=== PATIENT | female | born 1995 | race Caucasian/White ===

== ENCOUNTER 2021-11-17 09:46 | Emergency (ER) | payer MEDICAID, SELFPAY ==
[2021-11-17 10:04] VITALS: BP 112/66; BP 97/79; PULSE 80; PULSE 91; RESP 16; TEMP 37.1; O2SAT 99; BMI 32.9
--- NOTE | 2021-11-17 10:09 | ED.SKABFB ---
HPI - Skin/Abscess/Foreign Bdy General Chief complaint: Skin/Abscess/Foreign Body Stated complaint: DRAINAGE FROM CYST REMOVAL SITE ON COCCYX WEEK AGO Time Seen by Provider: 11/17/21 09:55 Source: patient and RN notes reviewed Mode of arrival: ambulatory Limitations: no limitations History of Present Illness HPI narrative: This is a 26-year-old female who presents today with complaints of foul-smelling drainage and pain from pionidal cyst removal site since yesterday. Patient states that on November 10, she had a pilonidal cyst removed by general surgery [facility]. She states that there were no complications during the surgery however reports with the last couple days she has had subjective fevers and chills and has noticed increased drainage from the incision site. She states that she has been performing dressing changes and has noticed yellow and green drainage as well as a foul smell. She did call her surgeon's office and they stated that she has a follow-up appointment on November 23 and that she only needs to return if her fever is above 99.5. She has been taking ibuprofen for her pain and is not currently on antibiotics. She states that she was on antibiotics, unsure of which for 7-10 prior to the surgery, but was not discharged on antibiotics. No other complaints or concerns at this time. MD complaint: abscess/boil Onset (ago): week(s) Tetanus up to date: yes Severity: moderate Severity scale (1-10): 8 Quality: aching Pain Consistency: constant Relieving factors: none Exacerbating factors: none Context: none Associated symptoms: fever and chills Treatments prior to arrival: NSAID Related Data Previous Rx's Medication Instructions Recorded acetaminophen 500 mg tablet 1,000 mg PO QID PRN fever or pain 11/17/21 (Tylenol Extra Strength) #14 tabs cephalexin 500 mg capsule 500 mg PO Q6H 10 days #40 caps 11/17/21 docusate sodium 100 mg capsule 100 mg PO BID PRN Constipation #14 11/17/21 (Colace) caps doxycycline monohydrate 100 mg 100 mg PO BID 10 days #20 tabs 11/17/21 tablet ibuprofen 800 mg tablet 800 mg PO Q8H PRN pain #30 tabs 11/17/21 oxycodone 5 mg tablet 5 mg PO Q6H PRN pain #30 tabs 11/17/21 polyethylene glycol 3350 17 17 g PO DAILY Constipation #238 11/17/21 gram/dose oral powder (Miralax) grams Allergies Allergy/AdvReac Type Severity Reaction Status Date / Time ciprofloxacin [From CIPRO] Allergy Unknown NEUROPATHY Unverified 01/16/20 17:33 Review of Systems Review of Systems: Constitutional : + Subjective Fevers, + Chills, + Night Sweats, No Fatigue, No Malaise ENT/Mouth : No Ear Pain, No Nasal Congestion, No Sinus Pain, No sore throat, No Rhinorrhea Eyes: No Eye Pain, No Swelling, No Redness, No Foreign Body, No Discharge, No Vision Changes Cardiovascular : No Chest Pain, No SOB, No Dyspnea on Exertion, No Orthopnea, No Palpitations Respiratory : No Cough, No Sputum, No Wheezing, No Dyspnea Gastrointestinal : No Nausea, No Vomiting, No Diarrhea, No Constipation, No abdominal Pain, No Hematochezia, No Melena Genitourinary : No Dysuria, No Urinary Frequency, No Urinary Incontinence, No Urgency, No Flank Pain Musculoskeletal : No joint pain, No Myalgias Skin : + pionidal cyst excised with sutures, No lacerations Neuro : No Focal weakness, no general weakness, No Numbness, No Paresthesias, No Loss of Consciousness, No Dizziness, No Headache Yes all other systems are reviewed and are negative [facility]LY [facility] Past Medical History Attestation statement: The following information was validated with the patient. Source: old records reviewed and nursing notes reviewed Social History Social History Advance Directives: No Advance Directives Information Provided: Yes Physical Exam Vital Signs: Vital Signs: Last Vital Signs Temp 98.8 F 11/17/21 10:04 Pulse 91 11/17/21 10:04 Resp 16 11/17/21 10:56 BP 97/79 11/17/21 10:04 Pulse Ox 99 11/17/21 10:04 O2 Del Method 11/17/21 10:04 BMI result Body Mass Index 32.9 Vital signs have been reviewed as normal and appeared to be correct. Blood pressure normal. Heart rate normal. Respiration rate normal. Temperature normal. Oxygen saturation normal. Appearance: Alert. Oriented X3. Tearful Head: Normal external exam. Normocephalic. Atraumatic. Eyes: PERRLA. EOMI. Conjunctiva and sclera normal. Eyelids normal. ENT: Pharynx normal. Uvula midline. Moist mucous membranes. No lesions/ulcerations or masses noted on the tongue. Normal voice. No trismus noted. No drooling noted. No muffled voice noted. Neck: Normal inspection. Neck supple. FROM. No adenopathy. Thyroid Normal. No meningeal signs. CVS: Normal heart rate and rhythm. Heart sound normal. Pulses normal throughout. No murmurs/rales/gallops. Respiratory: No respiratory distress. Painless inspiration. Breath sounds normal. No wheezes/rales/rhonchi noted. Chest nontender. No crepitus is noted. No signs of trauma noted. No accessory muscle usage noted or decreased air movement noted. No signs of trauma. Abdomen: Soft and nontender. Bowel sounds normal in all 4 quadrants. No distention noted. Back: No CVA tenderness. Full range of motion noted. Nontender. No signs of trauma. Skin: Gluteal cleft with incision, sutures placed, with surrounding erythema and warmth, significant purulent and serosanginous drainage excreted from wound. Extremities: No lower extremity edema. No calf tenderness is noted. Extremities exhibit normal range of motion and nontender. Neuro: Oriented X 3. No motor deficit. No sensory deficit. Reflexes normal. Normal steady gait. No focal neuro deficits noted. CN's II-XII intact bilaterally? Vascular: + radial pulses/+ 2 distal pedal pulses/+2 dorsalis pedis b/l. Normal cap refill. No cyanosis noted to upper extremity nails and lower extremity toes nails. Course Course Course Narrative: 1000 This is a 26-year-old female who presents today with complaints of foul-smelling drainage from pionidal cyst removal site x 2 days. Pilonidal cyst incisional site draining significant amount of purulence and serosanguineous fluid. Will obtain records from [facility]. Will treat prophylactically with Zosyn and morphine IV. Patient seen by Dr. Vivian Mathias. Dr. Long consulted who will come and evaluate patient. Plan: Labs ordered. Reevaluation(s) Reevaluation #1: - labs reviewed patient [place] [address] may be reactive due to pain and recent surgery. Otherwise all other labs are within normal limits. Lactic acid 0.7. UA within normal limits no evidence of UTI. Serum quant negative for . - Dr. Long came and evaluated the patient he reported that this is a normal complications that can happen that the stitches can sometimes dehisced or open and that the draining is expected. He reported that she can be sent home with antibiotics doxycycline and additional pain meds due to she ran out 3 days ago and instructions to follow-up with her general surgeon as scheduled on Monday and to return sooner if any new or worsening symptoms. Patient with significant other at bedside understand agree this plan Time: 12:40 MDM - Skin/Abscess/Foreign Bdy Medical Records Attestation: I reviewed the patient's medical records. Lab Data Attestation: I reviewed the patient's lab results. Result diagrams: 11/17/21 11:35 11/17/21 11:35 Labs: Lab Results 11/17/21 11/17/21 11/17/21 Range/Units 11:35 11:35 11:35 WBC 14.8 H (4.8-10.8) X10*3/uL RBC 3.87 L (4.20-5.50) X10*6/uL Hgb 12.1 (12.0-16.0) g/dl Hct 35.9 L (37.0-47.0) % MCV 92.8 (80.0-98.0) fL MCH 31.3 (27.0-33.0) pg MCHC 33.7 (31.0-35.0) g/dl RDW 12.7 (11.0-16.0) % Plt Count 214 (160-400) X10*3/uL MPV 10.6 (9.4-12.3) fL Immature Gran % (Auto) 0.5 H (0.0-0.4) % Neut % (Auto) 82.1 H (45-73) % Lymph % (Auto) 7.3 L (20-40) % [place] % (Auto) 9.3 (2-11) % Eos % (Auto) 0.5 (0-4) % Baso % (Auto) 0.3 (0-2) % Lymph # (Auto) 1.1 L (1.2-4.9) X10*3/uL [place] # (Auto) 1.4 H (0.1-1.2) X10*3/uL Eos # (Auto) 0.1 (0.0-0.4) X10*3/uL Baso # (Auto) 0.0 (0.0-0.2) X10*3/uL Abs Immat Gran (auto) 0.07 H (0.00-0.03) X10*3/uL Absolute Neuts (auto) 12.1 H (2.0-8.3) x10*3/uL Absolute Nucleated RBC 0.000 (0.0-0.012) X10*3/uL Nucleated RBC % (auto) 0.0 (0.0-0.2) /100WBC PT 11.3 (10.0-13.1) SEC INR 1.0 (0.9-1.1) Sodium 141 (135-145) mmol/L Potassium 4.2 (3.3-5.1) mmol/L Chloride 111 H (96-108) mmol/L Carbon Dioxide 23 (22-29) mmol/L Anion Gap 11 L (12-20) BUN 9 (9-16) mg/dL Creatinine 0.74 (0.5-1.4) mg/dL Estim Creat Clear Calc 124.1 Estimated GFR > 60 Random Glucose 87 (60-115) mg/dL Lactic Acid (0.5-2.0) mmol/L Calcium 8.7 (8.4-10.2) mg/dL Magnesium 2.0 (1.6-2.6) mg/dL Total Bilirubin 0.7 (0.0-1.0) mg/dL AST 19 (5-31) U/L ALT 22 (0-31) U/L Alkaline Phosphatase 73 (39-117) U/L Total Protein 6.5 (6.5-8.0) g/dL Albumin 4.0 (3.5-5.0) g/dL Beta HCG, Quant mIU/mL Urine Color Urine Appearance Urine pH (5.0-8.0) Ur Specific [place] (1.005-1.025) Urine Protein (NEG-TRACE) MG/DL Urine Glucose (UA) (NEG) MG/DL Urine Ketones (NEG) MG/DL Urine Blood (NEG) Urine Nitrite (NEG) Ur Leukocyte Esterase (NEG) Urine RBC (0) /HPF Urine WBC (0-4) /HPF Ur Squamous Epith Cells /LPF Urine Bacteria /LPF 11/17/21 11/17/21 11/17/21 Range/Units 11:35 11:35 12:17 WBC (4.8-10.8) X10*3/uL RBC (4.20-5.50) X10*6/uL Hgb (12.0-16.0) g/dl Hct (37.0-47.0) % MCV (80.0-98.0) fL MCH (27.0-33.0) pg MCHC (31.0-35.0) g/dl RDW (11.0-16.0) % Plt Count (160-400) X10*3/uL MPV (9.4-12.3) fL Immature Gran % (Auto) (0.0-0.4) % Neut % (Auto) (45-73) % Lymph % (Auto) (20-40) % [place] % (Auto) (2-11) % Eos % (Auto) (0-4) % Baso % (Auto) (0-2) % Lymph # (Auto) (1.2-4.9) X10*3/uL [place] # (Auto) (0.1-1.2) X10*3/uL Eos # (Auto) (0.0-0.4) X10*3/uL Baso # (Auto) (0.0-0.2) X10*3/uL Abs Immat Gran (auto) (0.00-0.03) X10*3/uL Absolute Neuts (auto) (2.0-8.3) x10*3/uL Absolute Nucleated RBC (0.0-0.012) X10*3/uL Nucleated RBC % (auto) (0.0-0.2) /100WBC PT (10.0-13.1) SEC INR (0.9-1.1) Sodium (135-145) mmol/L Potassium (3.3-5.1) mmol/L Chloride (96-108) mmol/L Carbon Dioxide (22-29) mmol/L Anion Gap (12-20) BUN (9-16) mg/dL Creatinine (0.5-1.4) mg/dL Estim Creat Clear Calc Estimated GFR Random Glucose (60-115) mg/dL Lactic Acid 0.7 (0.5-2.0) mmol/L Calcium (8.4-10.2) mg/dL Magnesium (1.6-2.6) mg/dL Total Bilirubin (0.0-1.0) mg/dL AST (5-31) U/L ALT (0-31) U/L Alkaline Phosphatase (39-117) U/L Total Protein (6.5-8.0) g/dL Albumin (3.5-5.0) g/dL Beta HCG, Quant < 2 mIU/mL Urine Color YELLOW Urine Appearance CLEAR Urine pH 7.0 (5.0-8.0) Ur Specific [place] 1.010 (1.005-1.025) Urine Protein NEG (NEG-TRACE) MG/DL Urine Glucose (UA) NEG (NEG) MG/DL Urine Ketones NEG (NEG) MG/DL Urine Blood TRACE (NEG) Urine Nitrite NEG (NEG) Ur Leukocyte Esterase NEG (NEG) Urine RBC 1-4 (0) /HPF Urine WBC 0-2 (0-4) /HPF Ur Squamous Epith Cells 1+ /LPF Urine Bacteria TRACE /LPF Discharge Plan Discharge Clinical Impression: Pilonidal abscess, Encounter for post surgical wound check Patient Disposition: Home, Self-Care Instructions: Pilonidal Cyst Excision (DC) Prescriptions: New doxycycline monohydrate 100 mg tablet 100 mg PO BID 10 Days Qty: 20 0RF cephalexin 500 mg capsule 500 mg PO Q6H 10 Days Qty: 40 0RF oxycodone 5 mg tablet 5 mg PO Q6H PRN (Reason: pain) Qty: 30 0RF Rx Instructions: Partial Fill upon patient request. ibuprofen 800 mg tablet 800 mg PO Q8H PRN (Reason: pain) Qty: 30 0RF acetaminophen [Tylenol Extra Strength] 500 mg tablet 1,000 mg PO QID PRN (Reason: fever or pain) Qty: 14 0RF docusate sodium [Colace] 100 mg capsule 100 mg PO BID PRN (Reason: Constipation) Qty: 14 0RF polyethylene glycol 3350 [Miralax] 17 gram/dose powder 17 g PO DAILY Qty: 238 0RF Referrals: Physician,Unknown J [Primary Care Provider] - 2 days (your pcp) Stand Alone Forms: Work/School Release
[2021-11-17 10:56] VITALS: RESP 16
[2021-11-17] MEDS: 0.9 % Sodium Chloride 1,000 ML 999 ML IVCONT (10:56)
[2021-11-17] MEDS: ondansetron HCL 4 MG/2 ML VIAL IVPUSH (10:56)
[2021-11-17] MEDS: Morphine Sulfate 4 MG/ML CARTRIDGE IVPUSH (10:56)
[2021-11-17 11:44] LABS: MANUAL DIFF FLAG NO
[2021-11-17 11:47] LABS: Basophils Percent Auto 0.3 % (0-2); Eosinophils Absolute Auto 0.1 X10*3/uL (0.0-0.4); Eosinophils Percent Auto 0.5 % (0-4); Hematocrit 35.9 % (37.0-47.0); Hemoglobin 12.1 g/dl (12.0-16.0); Imm Gran Abs Auto 0.07 X10*3/uL (0.00-0.03); Imm Gran Pct Auto 0.5 % (0.0-0.4); Lymphocytes Absolute Auto 1.1 X10*3/uL (1.2-4.9); Lymphocytes Percent Auto 7.3 % (20-40); Mean Corpuscular HGB Conc 33.7 g/dl (31.0-35.0); Mean Corpuscular Hemoglobin 31.3 pg (27.0-33.0); Mean Corpuscular Volume 92.8 fL (80.0-98.0); Mean Platelet Volume 10.6 fL (9.4-12.3); Monocytes Absolute Auto 1.4 X10*3/uL (0.1-1.2); Monocytes Percent Auto 9.3 % (2-11); Neutrophils Absolute Auto 12.1 x10*3/uL (2.0-8.3); Neutrophils Percent Auto 82.1 % (45-73); Platelet Count 214 X10*3/uL (160-400); Red Blood Count 3.87 X10*6/uL (4.20-5.50); Red Cell Distribution Width 12.7 % (11.0-16.0); White Blood Count 14.8 X10*3/uL (4.8-10.8)
[2021-11-17 11:54] LABS: Lactic Acid 0.7 mmol/L (0.5-2.0)
[2021-11-17 11:58] LABS: Prothrombin Time 11.3 SEC (10.0-13.1)
[2021-11-17] MEDS: oxyCODONE HCl Immed Release 5 MG TABLET PO (12:05)
[2021-11-17] MEDS: FLUoxetine HCl 20 MG CAPSULE 60 MG PO (12:06)
[2021-11-17] MEDS: Piperacillin Sodium/Tazobactam 2.25 GM in 0.9 % Sodium Chloride 50 ML IV (12:07)
[2021-11-17 12:08] LABS: Alanine Aminotransferase 22 U/L (0-31); Alkaline Phosphatase 73 U/L (39-117); Anion Gap 11 (12-20); Aspartate Amino Transferase 19 U/L (5-31); Bilirubin Total 0.7 mg/dL (0.0-1.0); Blood Urea Nitrogen 9 mg/dL (9-16); Calcium 8.7 mg/dL (8.4-10.2); Carbon Dioxide 23 mmol/L (22-29); Chloride 111 mmol/L (96-108); Creatinine Clr Calc Pharmacy 124.1; Estimated Glomerular Filt Rate > 60; Glucose Random 87 mg/dL (60-115); Potassium 4.2 mmol/L (3.3-5.1); Sodium 141 mmol/L (135-145); Total Protein 6.5 g/dL (6.5-8.0)
[2021-11-17 12:09] LABS: HCG Quantitative < 2 mIU/mL
[2021-11-17 12:25] LABS: Appearance Urine CLEAR; Color Urine YELLOW; Glucose Urine UA NEG (NEG); Leukocyte Esterase Urine NEG (NEG); Nitrite Urine NEG (NEG); UACC Culture Trigger NO; Urine Blood TRACE (NEG); Urine Ketones NEG (NEG); Urine Protein NEG (NEG-TRACE)
[2021-11-17 12:33] LABS: Squamous Epithelial Cell Urine 1+ /LPF
[2021-11-17 12:34] LABS: Bacteria Urine TRACE /LPF; WBC Urine 0-2 /HPF (0-4)
--- NOTE | 2021-11-17 15:21 | P.CONGS_ITS ---
History of Present Illness Consult details Consult date: 11/17/21 Narrative: 26-year-old female referred for me by the emergency room because of drainage from a postop wound. The patient had undergone excision of a pilonidal cyst in [facility] 1 week ago. She says that she has noted thin contents drainage from the wound. She said she has have low-grade fevers at home. She had try to get hold of her surgeon but she was told that her surgeon was away on vacation. She therefore came to the emergency room. She also has a history of anxiety. She denies any other complaints at this time. She does look like she is very anxious about drainage from her wound. She also says that feels that 1 of the stitches have come off. Review of Systems Constitutional: Constitutional: Denies chills and Denies fever(s) Cardiovascular: Cardiovascular: Denies chest pain, Denies dyspnea and Denies dyspnea on exertion Respiratory: Respiratory: Denies cough, Denies dyspnea and Denies dyspnea on exertion Gastrointestinal: Gastrointestinal: Denies hematochezia and Denies change in bowel habits Genitourinary: Genitourinary: Denies hematuria Musculoskeletal: Musculoskeletal: Denies back pain and Denies limited range of motion Neurologic: Denies focal weakness and Denies convulsions Psychiatric: Psychiatric: Reports anxiety, Reports depression and Denies mood swings PMFSH Past Medical History Medical History (Updated 11/17/21 @ 15:25 by Kobe Long MD) Sacrococcygeal pilonidal cyst Social History Social History Advance Directives: No Advance Directives Information Provided: Yes Meds Allergies Allergy/AdvReac Type Severity Reaction Status Date / Time ciprofloxacin [From CIPRO] Allergy Unknown NEUROPATHY Unverified 01/16/20 17:33 Physical Exam Vital Signs: Vital Signs: Last Vital Signs Temp 98.8 F 11/17/21 10:04 Pulse 91 11/17/21 10:04 Resp 16 11/17/21 10:56 BP 97/79 11/17/21 10:04 Pulse Ox 99 11/17/21 10:04 O2 Del Method 11/17/21 10:04 BMI result Body Mass Index 32.9 Const: Other: Appears anxious General: comfortable and no acute distress Orientation /consciousness: patient oriented x3 Neck: Neck: Yes no lymphadenopathy Resp: Auscultation: clear to auscultation bilaterally Cardio: Rhythm: regular rhythm Back/Spine/Pelvis: Other: Pilonidal excision site on the sacrococcygeal area without any cellulitic ying nges, no purulent drainage, sutures intact, Neuro: General: patient oriented x3 Results Labs Result diagrams: 11/17/21 11:35 11/17/21 11:35 Labs: Abnormal lab results 11/17/21 11/17/21 Range/Units 11:35 11:35 WBC 14.8 H (4.8-10.8) X10*3/uL RBC 3.87 L (4.20-5.50) X10*6/uL Hct 35.9 L (37.0-47.0) % Immature Gran % (Auto) 0.5 H (0.0-0.4) % Neut % (Auto) 82.1 H (45-73) % Lymph % (Auto) 7.3 L (20-40) % Lymph # (Auto) 1.1 L (1.2-4.9) X10*3/uL [place] # (Auto) 1.4 H (0.1-1.2) X10*3/uL Abs Immat Gran (auto) 0.07 H (0.00-0.03) X10*3/uL Absolute Neuts (auto) 12.1 H (2.0-8.3) x10*3/uL Chloride 111 H (96-108) mmol/L Anion Gap 11 L (12-20) Short CBC 11/17/21 Range/Units 11:35 WBC 14.8 H (4.8-10.8) X10*3/uL Hgb 12.1 (12.0-16.0) g/dl Hct 35.9 L (37.0-47.0) % Plt Count 214 (160-400) X10*3/uL BMP 11/17/21 11:35 Sodium 141 Potassium 4.2 Chloride 111 H Carbon Dioxide 23 BUN 9 Creatinine 0.74 Calcium 8.7 Liver Function 11/17/21 Range/Units 11:35 Total Bilirubin 0.7 (0.0-1.0) mg/dL AST 19 (5-31) U/L ALT 22 (0-31) U/L Alkaline Phosphatase 73 (39-117) U/L Albumin 4.0 (3.5-5.0) g/dL Urine 11/17/21 Range/Units 12:17 Urine Color YELLOW Urine Appearance CLEAR Urine pH 7.0 (5.0-8.0) Ur Specific [place] 1.010 (1.005-1.025) Urine Protein NEG (NEG-TRACE) MG/DL Urine Glucose (UA) NEG (NEG) MG/DL All other labs normal. Assessment and Plan (1) Sacrococcygeal pilonidal cyst: Status: Acute Plan She had excision of a pilonidal cyst at [facility] 1 week ago. She describes some clear thin drainage. She was worried about an infection. I assured her at this time that what is draining is what appears to be more of a serosanguineous fluid. Did state that she is worried because of some low-grade temperatures at home. She is extremely anxious about this. Told her that we can prescribe her some antibiotics. She is unable to see her surgeon until next week so she is frustrated and anxious about this. We had instructed her on good wound care as well. She is to see her surgeon again next week when he comes back from vacation. The above was also discussed with the ER staff. Procedures Date of Service Date of Service: 11/17/21
== END 2021-11-17 14:00 | disposition home or self-care (01) ==
PROVIDERS: Physician Assistant Medical; Emergency Provider Emergency Medicine
DX: L05.91 Pilonidal cyst without abscess (principal); R50.9 Fever, unspecified; Z79.899 Other long term (current) drug therapy
CPT/HCPCS: 36415; 80053; 81001; 83605; 83735; 84702; 85025; 85610; 87040; 96361; 96374; 96375; 99284; J2270; J2405; J2543

== ENCOUNTER 2022-03-20 14:30 | Emergency (ER) | payer MEDICAID, SELFPAY ==
--- NOTE | ~2022-03-20 | XR_ITS ---
Examination: XR foot RT min 3V, XR ankle RT min 3V Indication: rolled foot/ankle Comparison: No pertinent prior studies are currently available for comparison. Technique: 3 views of the right ankle and 3 views the right foot obtained. Findings: Right ankle: Bones are normal anatomic alignment with no acute fracture or dislocation. Ankle mortise appears to be intact. Mild soft tissue swelling suggested medially. No definite ankle joint effusion. Right foot: Bones are in normal anatomic alignment with no acute fracture or dislocation. No bony destructive lesions or periosteal reaction. XR/XR foot RT min 3V Impression: Mild soft tissue swelling about the ankle but no acute fracture or dislocation seen.
--- NOTE | ~2022-03-20 | XR_ITS ---
Examination: XR foot RT min 3V, XR ankle RT min 3V Indication: rolled foot/ankle Comparison: No pertinent prior studies are currently available for comparison. Technique: 3 views of the right ankle and 3 views the right foot obtained. Findings: Right ankle: Bones are normal anatomic alignment with no acute fracture or dislocation. Ankle mortise appears to be intact. Mild soft tissue swelling suggested medially. No definite ankle joint effusion. Right foot: Bones are in normal anatomic alignment with no acute fracture or dislocation. No bony destructive lesions or periosteal reaction. XR/XR ankle RT min 3V Impression: Mild soft tissue swelling about the ankle but no acute fracture or dislocation seen.
--- NOTE | 2022-03-20 14:35 | ED_ITS ---
HPI - Extremity Injury (Lower) General Chief Complaint: Extremity Injury, Lower Stated Complaint: R ankle inj Time Seen by Provider: 03/20/22 14:35 Source: patient Mode of arrival: wheelchair Limitations: no limitations History of Present Illness HPI Narrative: 26-year-old female with no significant past medical history presenting to the ED complaining of right ankle pain and swelling s/p rolling ankle on stairs this morning. ambulatory since the incident with pain. Reports mild paresthesias. Denies injury to the area, head trauma, LOC, weakness MD complaint: ankle injury and foot injury Related Data Previous Rx's Medication Instructions Recorded acetaminophen 500 mg tablet 1,000 mg PO QID PRN fever or pain 11/17/21 (Tylenol Extra Strength) #14 tabs cephalexin 500 mg capsule 500 mg PO Q6H 10 days #40 caps 11/17/21 docusate sodium 100 mg capsule 100 mg PO BID PRN Constipation #14 11/17/21 (Colace) caps doxycycline monohydrate 100 mg 100 mg PO BID 10 days #20 tabs 11/17/21 tablet ibuprofen 800 mg tablet 800 mg PO Q8H PRN pain #30 tabs 11/17/21 oxycodone 5 mg tablet 5 mg PO Q6H PRN pain #30 tabs 11/17/21 polyethylene glycol 3350 17 17 g PO DAILY Constipation #238 11/17/21 gram/dose oral powder (Miralax) grams Allergies Allergy/AdvReac Type Severity Reaction Status Date / Time ciprofloxacin [From CIPRO] Allergy Intermediate NEUROPATHY Verified 03/20/22 14:36 Review of Systems Review of Systems: Constitutional: No Fever, No Chills ENT/Mouth: No Ear Pain, No Nasal Congestion, No Sinus Pain, No Hoarseness, No sore throat, No Rhinorrhea, No Swallowing Difficulty Cardiovascular: No Chest Pain, No SOB Respiratory: No Cough, No Sputum, No Wheezing Gastrointestinal: No Nausea, No Vomiting, No Diarrhea, No Constipation, No Abdominal pain Genitourinary: No Dysuria, No Urinary Frequency, No Hematuria, No Flank Pain Musculoskeletal: + joint pain, No Myalgias, + Joint Swelling Skin: No Skin Lesions, No rash Neuro: No Weakness, No Numbness, + Paresthesias Yes all other systems are reviewed and are negative Constitutional: Constitutional: Reports as per [facility] Past Medical History Attestation statement: The following information was validated with the patient. Medical History Sacrococcygeal pilonidal cyst Social History Social History Advance Directives: No Advance Directives Information Provided: No Physical Exam Vital Signs: Vital Signs: Last Vital Signs Temp 98.0 F 03/20/22 14:36 Pulse 86 03/20/22 14:36 Resp 16 03/20/22 14:36 BP 134/83 03/20/22 14:36 Pulse Ox 98 03/20/22 14:36 O2 Del Method 03/20/22 14:36 BMI result Body Mass Index 29.2 Const: General: cooperative, healthy appearing and no acute distress Orientation/consciousness: patient oriented x3 Limitations: no limitations HEENT: Head: Yes normal to inspection and Yes atraumatic Ears: hearing grossly normal bilaterally General nose exam: Normal external nose present Face and sinus: Yes normal facial exam Eyes: General: appearance normal, both eyes and all related structures EOM: EOMs intact bilaterally Neck: Neck: Yes normal visual inspection and Yes no meningeal signs Resp: Effort & Inspection: normal respiratory effort and no respiratory distress Cardio: Rate: regular rate Heart sounds: S1 normal heart sound present and S2 normal heart sound present Peripheral pulses: dorsalis pedis present Skin: Rashes: no rashes Wounds: no wounds Neuro: General: patient oriented x3, tone normal and no meningeal signs Gait exam (Neuro): Normal gait present Extrem: Other: + mild swelling to right ankle/ proximal foot with tenderness to palpation > medial aspect. Neurovascularly intact. Reported decreased sensation to medial aspect of foot. Range of motion of toes intact. Limited ROM and ankle secondary to pain. Knee/tib-fib nontender Course Course Course Narrative: XR foot RT min 3V/XR ankle RT min 3V Impression: Mild soft tissue swelling about the ankle but no acute fracture or dislocation seen. ? >> will place patient in ankle stirrup and supply with crutches Results discussed with patient including worrisome signs and symptoms and strict return precautions, and when to return to the emergency department. They verbalized understanding and feel safe for discharge at this time. Medications Administered Discontinued Medications Generic Name Dose Route Start Last Admin Trade Name Freq PRN Reason Stop Dose Admin Ibuprofen 800 mg 03/20/22 15:48 03/20/22 15:55 Ibuprofen 800 Mg Tablet PO 03/20/22 15:49 800 mg ONCE ONE Administration MDM - Extremity Injury (Lower) MDM Narrative Medical decision making narrative: 26-year-old female with no significant past medical history presenting to the ED complaining of right ankle pain and swelling s/p rolling ankle on stairs this morning. On exam vital signs stable, NAD, nontoxic-appearing, physical exam as above. Concern for ankle/foot sprain versus fracture. No evidence of infection Plan: X-rays Differential Diagnosis Differential diagnosis: Likely ankle sprain and strain, fracture of toe and ankle fracture Medical Records Attestation: I reviewed the patient's medical records. Lab Data Attestation: I reviewed the patient's lab results. Procedures Orthopedic Splinting/Casting Injury #1: Side: right Lower Extremity Injury Location: ankle Lower Extremity Immobilizer: AirCast Other Orthopedic Equipment: crutches Discharge Plan Discharge Clinical Impression: Ankle sprain Patient Disposition: Home, Self-Care Instructions: Ankle Sprain (ED), R.I.C.E. Treatment (ED) Additional Instructions: Your x-ray shows some soft tissue swelling however no fracture, you have an ankle sprain. Air cast to help with comfort and stability. Bear weight as tolerated. Ice and elevate. Take Tylenol and Motrin as needed for pain and swelling Please follow-up with her doctor Prescriptions: No Action doxycycline monohydrate 100 mg tablet 100 mg PO BID 10 Days Qty: 20 0RF cephalexin 500 mg capsule 500 mg PO Q6H 10 Days Qty: 40 0RF oxycodone 5 mg tablet 5 mg PO Q6H PRN (Reason: pain) Qty: 30 0RF Rx Instructions: Partial Fill upon patient request. ibuprofen 800 mg tablet 800 mg PO Q8H PRN (Reason: pain) Qty: 30 0RF acetaminophen [Tylenol Extra Strength] 500 mg tablet 1,000 mg PO QID PRN (Reason: fever or pain) Qty: 14 0RF docusate sodium [Colace] 100 mg capsule 100 mg PO BID PRN (Reason: Constipation) Qty: 14 0RF polyethylene glycol 3350 [Miralax] 17 gram/dose powder 17 g PO DAILY Qty: 238 0RF Referrals: Jeramy Adams PA [Primary Care Provider] - 1 week
[2022-03-20 14:36] VITALS: BP 134/83; PULSE 86; RESP 16; TEMP 36.7; O2SAT 98; BMI 29.2
[2022-03-20] MEDS: Ibuprofen 800 MG TABLET PO (15:55)
== END 2022-03-20 16:52 | disposition home or self-care (01) ==
PROVIDERS: Emergency Provider Emergency Medicine Emergency Medical Services; PCP Physician Assistant Medical
DX: S93.401A Sprain of unspecified ligament of right ankle, initial encounter (principal); M25.571 Pain in right ankle and joints of right foot; X58.XXXA Exposure to other specified factors, initial encounter; Y93.9 Activity, unspecified; Y92.9 Unspecified place or not applicable; Y99.9 Unspecified external cause status
CPT/HCPCS: 29515; 73610; 73630; 99283

== ENCOUNTER 2022-09-23 20:56 | Emergency (ER) | payer OTHER, MEDICAID, SELFPAY ==
--- NOTE | ~2022-09-23 | XR_ITS ---
EXAMINATION: XR ANKLE, RIGHT CLINICAL INFORMATION: Ankle injury COMPARISON: None available. TECHNIQUE: AP, lateral, and mortise views of the right ankle. FINDINGS: There is an oblique slightly displaced fracture of the lateral malleolus at the level the synchondrosis. Ankle mortise remains congruent. XR/XR ankle RT min 3V IMPRESSION: Oblique slightly displaced fracture of the lateral malleolus.
[2022-09-23 21:00] VITALS: BP 119/70; PULSE 108; RESP 18; TEMP 36.2; O2SAT 97; BMI 27.5
--- NOTE | 2022-09-23 22:51 | ED_ITS ---
HPI - General Adult General Chief complaint: Extremity Injury, Lower Stated complaint: R Ankle Inj Time Seen by Provider: 09/23/22 22:00 Source: patient Mode of arrival: ambulatory Limitations: no limitations History of Present Illness HPI narrative: 27-year-old female no significant medical history presents the emergency department with right ankle pain and swelling, she reports she was walking her dog on skates, she tripped, fell, rolling her ankle, she reports intermittent numbness, tingling and significant swelling. Injury happened prior to arrival. She tells me she recently sprained the right ankle. Reports severe 10/10 pain worse with weight-bearing and range of motion better rest. Related Data Previous Rx's Medication Instructions Recorded acetaminophen 500 mg tablet 1,000 mg PO QID PRN fever or pain 11/17/21 (Tylenol Extra Strength) #14 tabs cephalexin 500 mg capsule 500 mg PO Q6H 10 days #40 caps 11/17/21 docusate sodium 100 mg capsule 100 mg PO BID PRN Constipation #14 11/17/21 (Colace) caps doxycycline monohydrate 100 mg 100 mg PO BID 10 days #20 tabs 11/17/21 tablet ibuprofen 800 mg tablet 800 mg PO Q8H PRN pain #30 tabs 11/17/21 oxycodone 5 mg tablet 5 mg PO Q6H PRN pain #30 tabs 11/17/21 polyethylene glycol 3350 17 17 g PO DAILY Constipation #238 11/17/21 gram/dose oral powder (Miralax) grams ketorolac 10 mg tablet 10 mg PO TID PRN pain 5 days #15 09/23/22 tabs Allergies Allergy/AdvReac Type Severity Reaction Status Date / Time ciprofloxacin [From CIPRO] Allergy Intermediate NEUROPATHY Verified 09/23/22 21:00 Review of Systems Review of Systems: Constitutional : No Weight loss, No Fever, No Chills, No Fatigue, No Malaise ENT/Mouth : No sore throat, No Rhinorrhea Eyes: No Eye Pain, No Swelling, No Redness Cardiovascular : No Chest Pain, No SOB, No Dyspnea on Exertion, No Orthopnea, No Edema, No Palpitations Respiratory : No Cough, No Sputum, No Wheezing Gastrointestinal : No Nausea, No Vomiting, No Diarrhea, No Constipation, No abdominal Pain, No Hematochezia, No Melena Genitourinary : No Dysuria, No Urinary Frequency, No Hematuria, Musculoskeletal : + joint pain, No Myalgias, + Joint Swelling Skin : No Skin Lesions, No rash Neuro : No Weakness, No Numbness, No Dizziness, No Headache Psych : No Anxiety/Panic, No Depression All other systems reviewed and are negative Yes all other systems are reviewed and are negative [facility] Past Medical History Attestation statement: The following information was validated with the patient. Source: old records reviewed and nursing notes reviewed Medical History Sacrococcygeal pilonidal cyst Social History Social History Advance Directives: No Advance Directives Information Provided: No Physical Exam ED Vital Signs: Vital Signs - 24 hr 09/23/22 21:00 Temperature 97.2 F Pulse Rate 108 H Respiratory Rate 18 Blood Pressure 119/70 Pulse Oximetry 97 Oxygen Delivery Method Room Air BMI result Body Mass Index 27.5 vss Appearance: Alert.? Oriented X3.? No acute distress.? Head: Normocephalic, atraumatic, no step-offs or deformities Eyes: Pupils equal, round and reactive to light.? ENT: Pharynx normal.? Neck: Normal inspection.? Neck supple.? CVS: Normal heart rate and rhythm.? Pulses normal.? Respiratory: No respiratory distress.? Breath sounds normal.? Abdomen: Soft and nontender.? Skin: Skin warm and dry.? Normal skin color.? Normal skin turgor.? Extremities: No lower extremity edema.? No calf ttp. 5/5 strength to bilateral upper and lower extremities 2+ dorsalis pedis anterior tibialis posterior tibialis pulses equal bilateral. Normal sensation to bilateral lower extremities distally. Denying less than 2nd capillary refill bilateral lower extremity digits. Full range of motion however painful to right ankle. Normal left ankle. No footdrop. Tenderness to palpation to right lateral malleolus. Overlying edema noted to the right lateral malleolus. No laxity. Neuro: Oriented X 3.? No motor deficit.? No sensory deficit. CN 2-12 intact Course Reevaluation(s) Reevaluation #1: X-ray with an oblique slightly displaced fracture of the lateral malleolus. Patient will be placed in a posterior short splint. Patient will be using crutches she brought in from home. Will give Toradol for pain and discharged home on same. Will advised on orthopedic follow-up and educated on worrisome signs and symptoms of compartment syndrome. Educated patient on diagnosis and treatment plan, answered all question, patient verbalizes understanding. At this time patient will be discharged home, advised to return with new or worsening symptoms. Educated on worrisome signs and symptoms and when to return. At this time I feel comfortable discharge home. Time: 23:06 Reevaluation #2: NV status intact post splinting. Time: 23:07 Medical Decision Making Medical Decision Making MDM Narrative: 27-year-old female presents for evaluation of right ankle pain and swelling status post rolling her ankle while on roller blades. When she fell she did not hit her head or lose consciousness. Not on blood thinners Physical exam significant for No lower extremity edema.? No calf ttp. 5/5 strength to bilateral upper and lower extremities 2+ dorsalis pedis anterior tibialis posterior tibialis pulses equal bilateral. Normal sensation to bilateral lower extremities distally. Denying less than 2nd capillary refill bilateral lower extremity digits. Full range of motion however painful to right ankle. Normal left ankle. No footdrop. Tenderness to palpation to right lateral malleolus. Overlying edema noted to the right lateral malleolus. No laxity. Neuro nonfocal cerebellar intact. Concerns for fracture, dislocation. Unlikely sprain, strain, no signs of neurovascular compromise with threatened limb. Plan imaging Differential Diagnosis Differential Diagnoses: The differential diagnosis associated with the presentation includes Concerns for fracture, dislocation. Unlikely sprain, strain, no signs of neurovascular compromise with threatened limb. Admission/Observation Consideration of admission/observation: Escalation of care including admission/observation considered Independent Interpretation I performed an independent interpretation of an: Plain X-Ray (XR/XR ankle RT min 3V IMPRESSION: Oblique slightly displaced fracture of the lateral malleolus.) Radiology Impression Discussion of test interpretation with radiology: I have reviewed the radiologist's reading. Core Measures AMI core measures followed: Yes Measure exclusions: not indicated Critical Care Time Critical Care Time Critical Care Time: No Discharge Plan Discharge Clinical Impression: Ankle fracture Patient Disposition: Home, Self-Care Instructions: Ankle Fracture (ED), R.I.C.E. Treatment (ED), Crutch Instructions (ED) Additional Instructions: Take your medications as prescribed. If you were prescribed antibiotics today, it is important that you take your medication to their entirety, do not skip any doses, do not finish them early. Follow-up with your primary care provider this week. Please follow-up with the orthopedic team within the next 1-3 days call number below Return to the emergency department with new or worsening symptoms. Such as fevers, chills, chest pain, shortness of breath, nausea, vomiting, dizziness, headache, vision changes, lethargy In case of emergency call 911 Toradol has been sent to your pharmacy, you tolerated this well in the department. Please take this as prescribed do not take this with ibuprofen, or other NSAIDs, do not mix this with alcohol. Side effects of this medication including increased risk for bleeding and possible kidney injury. Please return with any signs or symptoms of compartment syndrome which include pain out of proportion, swelling, numbness, tingling, discoloration of toes, inability to feel foot. Prescriptions: New ketorolac 10 mg tablet 10 mg PO TID PRN (Reason: pain) 5 Days Qty: 15 0RF No Action doxycycline monohydrate 100 mg tablet 100 mg PO BID 10 Days Qty: 20 0RF cephalexin 500 mg capsule 500 mg PO Q6H 10 Days Qty: 40 0RF oxycodone 5 mg tablet 5 mg PO Q6H PRN (Reason: pain) Qty: 30 0RF Rx Instructions: Partial Fill upon patient request. ibuprofen 800 mg tablet 800 mg PO Q8H PRN (Reason: pain) Qty: 30 0RF acetaminophen [Tylenol Extra Strength] 500 mg tablet 1,000 mg PO QID PRN (Reason: fever or pain) Qty: 14 0RF docusate sodium [Colace] 100 mg capsule 100 mg PO BID PRN (Reason: Constipation) Qty: 14 0RF polyethylene glycol 3350 [Miralax] 17 gram/dose powder 17 g PO DAILY Qty: 238 0RF [place] [facility] [place] [facility] [place]Provider Group] - 3 days Jeramy Adams PA [Primary Care Provider] - 2 days Stand Alone Forms: Work/School Release
[2022-09-23 23:52] VITALS: BP 142/66; PULSE 77; RESP 16; TEMP 36.6; O2SAT 97
== END 2022-09-24 | disposition home or self-care (01) ==
PROVIDERS: Emergency Provider Internal Medicine; PCP Physician Assistant Medical
DX: S82.61XA Displaced fracture of lateral malleolus of right fibula, initial encounter for closed fracture (principal); X50.1XXA Overexertion from prolonged static or awkward postures, initial encounter; R60.0 Localized edema; Y93.51 Activity, roller skating (inline) and skateboarding; Y92.480 Sidewalk as the place of occurrence of the external cause; Y99.9 Unspecified external cause status
CPT/HCPCS: 29515; 73610; 99283; 99284

== ENCOUNTER 2022-10-03 13:28 | Outpatient (REF) | payer OTHER, MEDICAID, SELFPAY ==
--- NOTE | ~2022-10-03 | XR_ITS ---
EXAMINATION: XR ANKLE, RIGHT CLINICAL INFORMATION: Pain COMPARISON: Ankle radiographs 09/23/2022 TECHNIQUE: AP, lateral, and mortise views of the right ankle. FINDINGS: Redemonstration of an obliquely oriented fracture of the distal fibular diaphysis with minimal displacement unchanged from prior. Mild soft tissue swelling about the ankle. Ankle mortise is congruent. No tibiotalar joint effusion. XR/XR ankle RT min 3V IMPRESSION: Redemonstration of an obliquely oriented fracture of the distal fibular diaphysis with minimal displacement unchanged from prior. Mild soft tissue swelling about the ankle.
== END 2022-10-03 13:29 | disposition home or self-care (01) ==
LOC: HO.HOSX 13:28
PROVIDERS: Visit Provider Physician Assistant
DX: S82.61XA Displaced fracture of lateral malleolus of right fibula, initial encounter for closed fracture (principal); V00.121A Fall from non-in-line roller-skates, initial encounter; Y93.51 Activity, roller skating (inline) and skateboarding; Y92.9 Unspecified place or not applicable; Y99.9 Unspecified external cause status
CPT/HCPCS: 73610

== ENCOUNTER 2022-10-14 07:35 | Outpatient (REF) | payer OTHER, MEDICAID, SELFPAY ==
--- NOTE | ~2022-10-14 | XR_ITS ---
EXAMINATION: XR ANKLE, RIGHT CLINICAL INFORMATION: Right ankle fracture. COMPARISON: 10/03/2022 and studies dating back to 03/20/2022. TECHNIQUE: AP, lateral, and mortise views of the right ankle. FINDINGS: There is again noted to be a minimally displaced fracture of the distal right fibula without change in alignment. No significant periosteal new bone formation is appreciated. Ankle mortise is congruent without widening of the medial joint space. No significant soft tissue swelling is appreciated. XR/XR ankle RT min 3V IMPRESSION: No significant change in distal right fibular fracture.
== END 2022-10-14 07:36 | disposition home or self-care (01) ==
LOC: HO.HOSX 07:35
PROVIDERS: Visit Provider Physician Assistant
DX: S82.61XA Displaced fracture of lateral malleolus of right fibula, initial encounter for closed fracture (principal)
CPT/HCPCS: 73610

== ENCOUNTER 2022-11-07 11:10 | Outpatient (REF) | payer OTHER, MEDICAID, SELFPAY ==
--- NOTE | ~2022-11-07 | XR_ITS ---
EXAMINATION: XR ANKLE, RIGHT CLINICAL INFORMATION: Pain COMPARISON: Prior studies including the 10/14/2022 exam TECHNIQUE: AP, lateral, and mortise views of the right ankle. FINDINGS: Obliquely oriented healing distal fibular fracture is again seen. Fracture lines are less distinct than the prior study with periosteal ossification now present consistent with progressive interval healing. Ankle mortise appears to be intact and in normal alignment. XR/XR ankle RT min 3V IMPRESSION: Progressive healing of the distal fibular fracture.
== END 2022-11-07 11:11 | disposition home or self-care (01) ==
LOC: HO.HOSX 11:10
PROVIDERS: Visit Provider Physician Assistant
DX: S82.61XD Displaced fracture of lateral malleolus of right fibula, subsequent encounter for closed fracture with routine healing (principal)
CPT/HCPCS: 73610

== ENCOUNTER 2022-11-07 14:55 | Outpatient (AMB) | payer OTHER, MEDICAID, SELFPAY ==
[2022-11-07 15:02] VITALS: BMI 27.5
--- NOTE | 2022-11-07 15:02 | MHC.OFFVIS ---
Intake Vital Signs 11/07/22 15:02 Height 5 ft 4 in Weight 160 lb BMI 27.5 Intake Visit Reasons: OV- right ankle fx, DOI 09/23/22 Intake Note: Clarisse is a 27 year old female who presents today for a follow up appointment s/p right ankle fx, DOI 09/23/22. Patient reports having more weakness than pain. She states when she tries to flex her foot up or down it causes her pain. Denies numbness and tingling. Allergies ciprofloxacin [From CIPRO] Allergy (Intermediate, Verified 11/07/22 15:02) NEUROPATHY HPI OV- right ankle fx, DOI 09/23/22 HPI Details 27-year-old female who presents in the office today for a follow of a right ankle lateral malleolus fracture, which occurred on 09/23/2022 status post walking her dog on skates, when she tripped and fell causing her to roll her ankle. The patient reports having more weakness then pain. She claims flexing and extending the ankle causes an increase in pain. She denies numbness or tingling. 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 No ecchymosis, erythema, or edema. No tenderness to palpation at the distal fibula or fracture site. Stiffness with ROM in all planes. Sensation intact. Pedal pulse intact. Psych Mental Status: mental status grossly normal Assessment & Plan Assessment & Plan (1) Fracture of right ankle, lateral malleolus: Code(s): S82.61XA - Displaced fracture of lateral malleolus of right fibula, initial encounter for closed fracture Plan Ms. Gonzalez is a 27-year-old female who presents in the office today for a follow of a right ankle lateral malleolus fracture, which occurred on 09/23/2022 status post walking her dog on skates, when she tripped and fell causing her to roll her ankle. The patient reports having more weakness then pain. She claims flexing and extending the ankle causes an increase in pain. She denies numbness or tingling. The patient will be referred for physical therapy. She will begin to wean out of the boot as tolerated. She was fitted for a lace up ankle brace, off the shelf, while in the office today. Follow up will be in 5 weeks, or sooner if needed. X-rays of the right ankle which were obtained while in the office today and were reviewed by me, Radha Rivera PA-C, revealed routine healing of a right distal fibular fracture. Orders: Orders XR ankle RT min 3V 11/07/22 M25.579 - Pain in unspecified ankle and joints of unspecified foot PT Evaluation and Treatment 11/07/22 S82.61XA - Displaced fracture of lateral malleolus of right fibula, initial encounter for closed fracture Patient Instructions: Scribed for Rdaha Rivera PA-C by Jeanette Blanco medical technician assistant, on 11/07/2022 at 2:57 pm, EST. Your attestation Coding Level of Care Code Global (56916) Diagnoses Fracture of right ankle, lateral malleolus S82.61XA
== END 2022-11-07 15:48 | disposition home or self-care (01) ==
PROVIDERS: PCP Physician Assistant Medical; Visit Provider Physician Assistant
DX: S82.61XD Displaced fracture of lateral malleolus of right fibula, subsequent encounter for closed fracture with routine healing (principal)
CPT/HCPCS: 99213

== ENCOUNTER 2024-09-09 09:53 | Emergency (ER) | payer OTHER, SELFPAY ==
--- NOTE | 2024-09-09 | ECG_ITS ---
Test Reason : cp Blood Pressure : */* mmHG Vent. Rate : 99 BPM Atrial Rate : 99 BPM P-R Int : 160 ms QRS Dur : 86 ms QT Int : 340 ms P-R-T Axes : 52 40 -10 degrees QTcB Int : 436 ms Normal sinus rhythm Normal ECG No previous ECGs available Referred By: Generic ED Physician Electronically Signed By: FRANKY DE LEÓN MD
[2024-09-09 09:58] VITALS: BP 128/73; PULSE 100; RESP 18; TEMP 36.2; O2SAT 97; BMI 32.2
[2024-09-09 10:10] LABS: MANUAL DIFF FLAG NO
[2024-09-09 10:12] LABS: Basophils Absolute Auto 0.1 X10*3/uL (0.0-0.2); Eosinophils Absolute Auto 0.1 X10*3/uL (0.0-0.4); Eosinophils Percent Auto 1.9 % (0-4); Hematocrit 37.4 % (37.0-47.0); Hemoglobin 12.9 g/dl (12.0-16.0); Imm Gran Abs Auto 0.02 X10*3/uL (0.00-0.03); Imm Gran Pct Auto 0.3 % (0.0-0.4); Lymphocytes Absolute Auto 1.9 X10*3/uL (1.2-4.9); Lymphocytes Percent Auto 33.2 % (20-40); Mean Corpuscular HGB Conc 34.5 g/dl (31.0-35.0); Mean Corpuscular Hemoglobin 31.9 pg (27.0-33.0); Mean Corpuscular Volume 92.3 fL (80.0-98.0); Mean Platelet Volume 10.1 fL (9.4-12.3); Monocytes Absolute Auto 0.5 X10*3/uL (0.1-1.2); Monocytes Percent Auto 8.2 % (2-11); Neutrophils Absolute Auto 3.2 x10*3/uL (2.0-8.3); Neutrophils Percent Auto 55.4 % (45-73); Platelet Count 236 X10*3/uL (160-400); Red Blood Count 4.05 X10*6/uL (4.20-5.50); Red Cell Distribution Width 12.5 % (11.0-16.0); White Blood Count 5.8 X10*3/uL (4.8-10.8)
[2024-09-09 10:29] LABS: Anion Gap 10 (12-20); Blood Urea Nitrogen 12 mg/dL (9-16); Calcium 9.3 mg/dL (8.4-10.2); Carbon Dioxide 27 mmol/L (22-29); Chloride 109 mmol/L (96-108); Creatinine Clr Calc Pharmacy 107.9; Estimated Glomerular Filt Rate > 60; Glucose Random 124 mg/dL (60-115); Potassium 4.5 mmol/L (3.3-5.1); Sodium 141 mmol/L (135-145)
[2024-09-09 10:42] LABS: Troponin-I High Sensitivity < 2.7 ng/L (<3.5-17.0)
--- NOTE | 2024-09-09 11:02 | ED.CHESTPAIN ---
HPI - Chest Pain General Chief Complaint: Chest Pain Stated Complaint: Chest Pain X 1 Wk Time Seen by Provider: 09/09/24 10:54 Source: patient, RN notes reviewed and old records reviewed Mode of arrival: ambulatory Limitations: no limitations History of Present Illness ED Provider: Idania HPI narrative: Patient is a 29-year-old female with history of ADHD presenting to the emergency department with complaint of intermittent chest pain for the past week. States that she was previously prescribed Vyvanse and that her prior provider was comfortable with her using cannabis while taking the Vyvanse. Had to obtain new provider due to insurance issues and new provider will not prescribe her the Vyvanse if she is using cannabis. Feels she is having to use large amounts of caffeine to control her ADHD symptoms. Reports increased stress at school with finals and work has been busier. Has been drinking 4-6 Celsius drinks per day. Denies associated diaphoresis, abdominal pain, nausea, vomiting. Has been trying to cut back on the energy drinks, only had one yesterday. States last night she felt as though the pain was radiating to her left arm. MD complaint: chest pain Onset (ago): week(s) Timing of current episode: episodic Onset: during rest Pain location: substernal Pain radiation: left arm Related Data Home Medications ?Medication ?Instructions ?Recorded ?Confirmed albuterol sulfate 90 mcg/actuation 1 puff inhalation QID PRN wheezing 10/03/22 aerosol inhaler (Ventolin HFA) fluoxetine 20 mg capsule 60 mg PO QAM 10/03/22 lisdexamfetamine 30 mg capsule 30 mg PO QAM 10/03/22 (Vyvanse) quetiapine 150 mg tablet,extended 150 mg PO BEDTIME 10/03/22 release 24 hr quetiapine 50 mg tablet 50 mg PO TID 10/03/22 Previous Rx's ?Medication ?Instructions ?Recorded acetaminophen 500 mg tablet 1,000 mg (2 x 500 mg) PO QID PRN 11/17/21 (Tylenol Extra Strength) fever or pain #14 tabs oxycodone 5 mg tablet 5 mg PO Q6H PRN pain #30 tabs 11/17/21 polyethylene glycol 3350 17 17 g PO DAILY Constipation #238 11/17/21 gram/dose oral powder (Miralax) grams ketorolac 10 mg tablet 10 mg PO TID PRN pain 5 days #15 09/23/22 tabs Allergies Allergy/AdvReac Type Severity Reaction Status Date / Time ciprofloxacin [From CIPRO] Allergy Intermediate NEUROPATHY Verified 09/09/24 09:59 Review of Systems Review of Systems: As per HPI Yes all other systems are reviewed and are negative Constitutional: Constitutional: Reports as per HPI [facility] Past Medical History Medical History History of behavioral and mental health problems Sacrococcygeal pilonidal cyst Social History Social History Alcohol intake: former Advance Directives: No Advance Directives Information Provided: Yes Do you have a plan to hurt others: No Plan Current occupational status: employed 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 Blood pressure normal. Heart rate normal. Respiratory rate normal. Temperature normal. Oxygen saturation normal. Const: General: cooperative, healthy appearing and no acute distress Orientation/consciousness: oriented to person, oriented to place, oriented to time and patient oriented x3 Limitations: no limitations HEENT: Head: Yes normocephalic and Yes atraumatic Ears: external ears normal General nose exam: Normal external nose present Face and sinus: Yes face symmetric Mouth: oropharynx normal and moist mucous membranes Throat: Yes uvula midline Eyes: Pupils: Equal, round and reactive pupils present Neck: Neck: Yes normal visual inspection and Yes supple Resp: Effort & Inspection: normal respiratory effort and able to speak in complete sentences Auscultation: clear to auscultation bilaterally Cardio: Rate: regular rate Rhythm: regular rhythm Heart sounds: S1 normal heart sound present and S2 normal heart sound present GI: Palpation (GI): Soft to palpation and nontender Auscultation: normoactive bowel sounds : General: Yes no CVA tenderness Back/Spine/Pelvis: Back: no CVA tenderness Skin: General skin exam: elasticity normal and turgor normal Neuro: General: oriented to person, oriented to place, oriented to time, patient oriented x3, moves all extremities, no focal motor deficits and CN's II-XI intact bilaterally Cranial nerves: Yes Equal, round and reactive pupils present Cognition (Neuro): normal cognition Extrem: General: Yes full ROM, Yes no pedal edema and Yes no calf tenderness Psych: Mental Status: mental status grossly normal Affect: normal affect Thought process: Normal thought process present Medical Decision Making Medical Decision Making [facility] Narrative: Patient is a 29-year-old female with history of ADHD presenting to the emergency department with complaint of intermittent chest pain for the past week. On exam patient is awake, A+Ox3, VS WNL, afebrile, normal neurological exam without focal deficits, physical exam findings as above. Given reported symptoms and physical exam findings, initial differential includes but is not limited to cardiac arrhythmia, dehydration, electrolyte abnormality, GERD. Unlikely ACS. Labs unremarkable, troponin negative. EKG shows normal sinus rhythm. Discussed with patient that she should not stop drinking the caffeine cold turkey, as this can cause severe headaches. Did recommend that she avoid energy drinks and try to use coffee or tea instead. Also discussed finding a new provider willing to prescribe her Vyvanse while allowing her to use cannabis. Return precautions discussed at bedside. Advised patient to follow up with PCP. Patient verbalized understanding of and agreement with plan. Differential Diagnosis Differential Diagnoses: The differential diagnosis associated with the presentation includes As per [facility] Admission/Observation Consideration of admission/observation: Escalation of care including admission/observation considered Patient would have been admitted to the hospital had their work up had any findings where hospital admission was appropriate and their clinical presentation warranted hospital admission. Lab Data [facility] Lab Attestation statement: I reviewed the patient's lab results. As per [facility] 09/09/24 10:06 09/09/24 10:06 Labs: Lab Results 09/09/24 Range/Units 10:06 WBC 5.8 (4.8-10.8) X10*3/uL RBC 4.05 L (4.20-5.50) X10*6/uL Hgb 12.9 (12.0-16.0) g/dl Hct 37.4 (37.0-47.0) % MCV 92.3 (80.0-98.0) fL MCH 31.9 (27.0-33.0) pg MCHC 34.5 (31.0-35.0) g/dl RDW 12.5 (11.0-16.0) % Plt Count 236 (160-400) X10*3/uL MPV 10.1 (9.4-12.3) fL Immature Gran % (Auto) 0.3 (0.0-0.4) % Neut % (Auto) 55.4 (45-73) % Lymph % (Auto) 33.2 (20-40) % Catahoula % (Auto) 8.2 (2-11) % Eos % (Auto) 1.9 (0-4) % Baso % (Auto) 1.0 (0-2) % Lymph # (Auto) 1.9 (1.2-4.9) X10*3/uL [place] # (Auto) 0.5 (0.1-1.2) X10*3/uL Eos # (Auto) 0.1 (0.0-0.4) X10*3/uL Baso # (Auto) 0.1 (0.0-0.2) X10*3/uL Abs Immat Gran (auto) 0.02 (0.00-0.03) X10*3/uL Absolute Neuts (auto) 3.2 (2.0-8.3) x10*3/uL Absolute Nucleated RBC 0.000 (0.0-0.012) X10*3/uL Nucleated RBC % (auto) 0.0 (0.0-0.2) /100WBC Sodium 141 (135-145) mmol/L Potassium 4.5 (3.3-5.1) mmol/L Chloride 109 H (96-108) mmol/L Carbon Dioxide 27 (22-29) mmol/L Anion Gap 10 L (12-20) BUN 12 (9-16) mg/dL Creatinine 0.82 (0.5-1.4) mg/dL Estim Creat Clear Calc 107.9 Estimated GFR > 60 Random Glucose 124 H (60-115) mg/dL Calcium 9.3 D (8.4-10.2) mg/dL Troponin I High Sens < 2.7 (<3.5-17.0) ng/L Independent Interpretation I performed an independent interpretation of an: EKG (normal sinus rhythm, rate 99bpm, normal NM interval and QTc) External Record Review External record reviewed: Inpatient record, Office record and Outpatient record Discharge Plan Discharge Clinical Impression: Chest pain Patient Disposition: Home, Self-Care Instructions: Chest Pain (DC), Caffeine Use (ED) Additional Instructions: You were evaluated in the emergency department today for chest pain. Your evaluation has shown no signs of medical conditions requiring emergent intervention at this time, however we recommend that you follow-up with your primary care physician or a class c truck driver for further testing as an outpatient. We recommend that you avoid using energy drinks such as C, monster, red bull, etc.. If you need to drink caffeine we recommend that you use coffee or tea. Do not stop drinking caffeine cold turkey as this can cause severe headaches, but try to slowly wean yourself down to lower amounts. Return to the emergency department if you experience worsening or uncontrolled chest pain, shortness of breath, lightheadedness, feeling faint, loss of consciousness, nausea, vomiting, or any other concerning symptoms. Prescriptions: No Action oxycodone 5 mg tablet 5 mg PO Q6H PRN (Reason: pain) Qty: 30 0RF Rx Instructions: Partial Fill upon patient request. acetaminophen [Tylenol Extra Strength] 500 mg tablet 1,000 mg PO QID PRN (Reason: fever or pain) Qty: 14 0RF polyethylene glycol 3350 [Miralax] 17 gram/dose powder 17 g PO DAILY Qty: 238 0RF ketorolac 10 mg tablet 10 mg PO TID PRN (Reason: pain) 5 Days Qty: 15 0RF Vyvanse 30 mg capsule 30 mg PO QAM quetiapine 150 mg tablet extended release 24 hr 150 mg PO BEDTIME quetiapine 50 mg tablet 50 mg PO TID fluoxetine 20 mg capsule 60 mg PO QAM albuterol sulfate [Ventolin HFA] 90 mcg/actuation HFA aerosol inhaler 1 puff inhalation QID PRN (Reason: wheezing) Print Language: Albanian
--- OUTSIDE RECORDS SUMMARY | 2024-09-09 11:48 | XMS_ITS | Encounter Summary ---
Author Organization [facility] Address [address] [place] [id number] Phone Care Team Providers Care Oil Lease Broker Name Role Phone Mary Jo Jay MD Primary Care Provider [phone] Encounter Details Date Type Department Care Team (Late st Contact Info) Description 06/18/2013 Conversion Encounter [facility] [address] [place] [id number] Social History Tobacco Use Types Packs/Day Years Used Date Smoking Tobacco: Never Comments:Never Smoker Comments Unknown Sex and Gender Information Value Date Recorded Sex Assigned at Not on file Legal Sex Female 6:20 PM EDT Gender Identity Not on file Sexual Orientation Not on file documented as of this encounter Plan of Treatment Not on file documented as of this encounter Visit Diagnoses Not on filedocumented in this encounter Care Teams Oil Lease Broker Relationship Specialty Start Date End Date Mary Jo Jay MD PCP - General Pediatrics 05/05/20 documented as of this encounter
--- OUTSIDE RECORDS SUMMARY | 2024-09-09 11:48 | XMS_ITS | Clinical Summary ---
Author Organization [facility] Address [address] [place] [phone] Phone Care Team Providers Care Resizer Operator Name Role Phone Mary Jo Jay MD Primary Care Provider [phone] Allergies Active Allergy Reactions Criticality Noted Date Comments Ciprofloxacin Other (see comments) 11/13/2015 Peripheral neuropathy Peripheral neuropathy Medications traZODone 50 MG tabletIndication s:Other insomnia Take 1 tablet (50 mg total) by mouth nightly. 30 tablet 2 1 Active Additional Information Patient taking differently:50 mg Oral Nightly,1/2 a pill prn, Reported on 08/10/2020 SUMAtriptan (Imitrex) 5 MG/ACT nasal sprayIndications :Migraine without aura and with status migrainosus, not intractable Administer 1 spray (5 mg total) into one nostril once as needed for migraine (May repeat in 2 hours if symptoms persist) for up to 1 dose. 1 Units 1 1 Active QUEtiapine XR 150 MG 24 hr tablet TAKE 1 TABLET BY MOUTH EVERYDAY AT BEDTIME 1 Active QUEtiapine 50 MG tablet Take 50 mg by mouth 3 (three) times a day. 1 Active FLUoxetine 20 MG capsule 1 Active Vyvanse 20 MG capsule 1 Active Active Problems Problem Noted Date Diagnosed Date Acute cystitis with hematuria 01/02/2021 Assessment & Plan (01/02/2021 11:29 AM EDT): UA concerning for possible UTI and with history of UTIs will treat with an antibiotic course. Previously cultures have shown a kiran-sensitive e. Coli infection. Will treat with bactrim. Sending urine for culture to check on sensitivities for this current infection. Also sending vaginal swab to check for other issues as patient describes vaginal discharge. Migraine without aura and wi th status migrainosus, not intractable 08/10/2020 Assessment & Plan (08/10/2020 3:55 PM EDT): Patient has had migraine headaches that have been going on for the last year. They have been getting more frequent. Also there is a right sided component to these headaches consistently. No obvious neurologic issues on exam today. No obvious triggers that she has noticed. She does use marijuana regularly but no change in this use recently. Psychiatric medications have changed some but no obvious connection between these changes and headaches. Plan to treat with sumatriptan as she has had this in the past. Referral to adult neurology for further evaluation and management. MDD (major depressive disord er), recurrent episode, moderate 06/02/2016 Assessment & Plan (08/11/2018 8:03 AM EDT): Has been on different psych medication. Needs to see a psychiatrist. Have given her information to find therapist which will be able to find psychiatrist. Attention deficit disorder with hyperactivity Overview (08/11/2018): ADHD (314.01) Onset: 01/25/2016 Added by: Selena Pham Immunizations Immunization Administration Dates Next Due COVID-19 Moderna, monovalent , 12+ years 10/20/2020 DTaP 5 06/29/2000, 8,1996,10/29,1996 HPV, Quadrivalent 04/08/2010,12/08/2009,10/09/19 10 Hep B, ped/adol 03/31/1997,1996,1996 Hib (PRP-T) 09/29/1997, 7,1996,08/29 IPV 06/29/2000, 7,1996,08/29 Influenza, injectable, quadr ivalent, preservative free 05/20/2016 MMR 06/29/2000,09/29/1997 Meningococcal Conj (Menactra) MCV4P 07/22/2014,0 10/08/2009 Td (adult) ([facility]), 5 Lf t etanus toxoid, PF, adsorbed 12/21/2005 Tdap 04/08/2010 Social History Tobacco Use Types Packs/Day Years Used Date Smoking Tobacco: Never Smokeless Tobacco: Current Comments:Never Smoker Alcohol Use Standard Drinks/Week Comments Never 0 (1 standard drink = 0.6 oz pur e alcohol) Hunger/Food Answer Date Recorded In the last 12 months, did y ou or your family ever eat less than you felt you should because there wasn't enough money for food? No 05/05/2020 Stable Housing Answer Date Recorded Are you worried that in the next 2 months you may not have stable housing? No 05/05/2020 Transportation Concerns Answer Date Rec orded In the last 12 months, have you or your family ever had to go without healthcare because you didn't have a way to get there? No 05/05/2020 Hazards in Home Answer Date Recorded Think about the place you li ve. Do you have problems with any of the following? Pests (mice or roaches), mold, no/not working smoke detectors, water leaks, no window guards. No 2020 Financing Utilities Answer Date Recorde d In the last 12 months, has t he electric, gas, oil, or water company threatened to shut off your services in your home? No 05/05/2020 Safety at Home Answer Date Recorded Are you or your family worried about feeling saf e in your home? No 05/05/2020 Outside Support Answer Date Recorded Do you feel that you need mo re support from other people or programs to help you care for yourself or your family? No 05/05/2020 Understanding Health Concerns Answer Da te Recorded Do you need help understandi ng your or your child's healthcare needs (diagnosis, medications, plan, etc.)? No 05/05/2020 Financing Health Concerns Answer Date R ecorded In the last 12 months, was t here a time when your child needed to see a doctor or get medications or supplies but could not because of cost? No 05/05/2020 Missing School or Work Answer Date Nayan rded Did you or your child miss s chool or work because of a health problem that could have been avoided? No 05/05/2020 Comments No Sex and Gender Information Value Date Recorded Sex Assigned at Not on file Legal Sex Female 6:20 PM EDT Gender Identity Not on file Sexual Orientation Not on file Last Filed Vital Signs Vital Sign Reading Time Taken Comments Blood Pressure 138/80 08/10/2020 2:35 PM EDT Pulse 102 08/03/2020 2:52 PM EDT Temperature 36.3 ??C (97.3 ??F) 03/24/2021 4:33 PM ES T Respiratory Rate - - Oxygen Saturation - - Inhaled Oxygen Concentration - - Weight 80.3 kg (177 lb) 08/03/2020 2:52 PM EDT Height 165.1 cm (5' 5 ) 08/03/2020 2:52 PM EDT Body Mass Index 29.45 08/03/2020 2:52 PM EDT Plan of Treatment Health Maintenance Due Date Last Done Comments Varicella Vaccines (1 of 2 - 13+ 2-dose series) 2009 DTaP,Tdap,and Td Vaccines (7 - Td or Tdap) 04/08/2020 04/08/2010, 12/21/2005, 06/29/2000, Additional history exists Glucose/HbA1C 08/03/2020 LDL-C/Cholesterol 08/03/2020 Influenza Vaccines (#1) 2023 05/20/2016 COVID-19 Vaccine ( season) 2023 10/20/2020 Hepatitis B Vaccines Completed 03/31/1997, 1996, 1996 HIB Vaccines Completed 09/29/1997, 10/1996, 1996, Additional history exists IPV Vaccines Completed 06/29/2000, 05/1996, 1996, Additional history exists MMR Vaccines Completed 06/29/2000, 09/29/1997 HPV Vaccines Completed 04/08/2010, 11/29, 10/08/2009 Meningococcal Vaccine Completed 07/22/2014, 010 Hepatitis A Vaccines Aged Out No long er eligible based on patient's age to complete this topic Men B Vaccine Aged Out No longer elig ible based on patient's age to complete this topic Pneumococcal Vaccine Aged Out No long er eligible based on patient's age to complete this topic Procedures * Due to [facility] law, this organization might not be sharing sensitive test results. Procedure Name Priority Date/Time Associated Diagnosis Comments SURESWAB (ADV) VAGINITIS PLUS, TMA Routine 01/02/2021 10:57 AM EDT Dysuria from Last 3 Months or Most Recently Relevant to Health Maintenance Results * Due to [place] [employer] law, this organization might not be sharing sensitive test results. * (ABNORMAL) Vaginosis/Vaginitis Plus (01/02/2021 10:57 AM EDT) BACTERIAL VAGINOSIS TEST POSITIVE(A) (NEG) [facility] Comment: Bacterial vaginosis targets by PCR detected in this patient's sample. ?? Note: This assay uses real time cocoa powder mixer operator-mediated amplification (TMA) for detection and quantification of ribosomal RNA from bacteria associated with bacterial vaginosis (BV), including Lactobacillus (L. gasseri, L. crispatus, and L. jensenii), Gardnerella vaginalis, and Atopobium vaginae. Hank Species NEGATIVE (NEG) [facility] Comment: No hank species group (C. albicans, C. tropicalis, C. parapsilosis, C. dubliniensis) targets by PCR detected in this patient's sample. Hank Glabrata, SALIMA NEGATIVE (NEG) [facility] Comment:No Hank glabrata targets by PCR detected in this patient's sample. SureSwab, T.vaginalis RNA NEGATIVE (NEG) [facility] Comment: No Trichomonas vaginalis targets by PCR detected in this patient's sample. ?? Note: This assay uses real time cocoa powder mixer operator-mediated amplification (TMA) for detection and quantification of ribosomal RNA from organisms associated with Hank species group (C. albicans, C. tropicalis, C. parapsilosis, C. dubliniensis), Hank glabrata, and Trichomonas vaginalis. Chlamydia Trachomatis, Amplified NEGATIVE (NEG) [facility] Comment: No Chlamydia Trachomatis RNA detected in this patient's sample ? (REFERENCE RANGE/NORMAL VALUE: NOT DETECTED) ? Note: This test uses cocoa powder mixer operator- mediated amplification method to detect rRNA from C. Trachomatis N.GONORRHOEAE AMP PROBE NEGATIVE (NEG) [facility] Comment: No Neisseria Gonorrhoeae RNA detected in this patient's sample ? (REFERENCE RANGE/NORMAL VALUE: NOT DETECTED) ? NOTE: This test uses cocoa powder mixer operator-mediated amplification method to detect rRNA from N.Gonorrhoeae. A negative result does not preclude infection. In the case of a negative urine result, testing of an endocervical(female) or urethral (male) specimen is recommended if there is high clinical suspicion of infection. Due to very high sensitivity of Nucleic Acid Amplification Test, false positive results may occur. Therefore, specimen handling is extremely important. In patients in whom the disease is unlikely, additional sample for testing should be considered after an initial positive result. The performance characteristics of this test have not been evaluated in children. The Aptima Combo2 assay is not intended for the evaluation of suspected sexual abuse or for other medico-legal indications. The ordering provider should assess if the patient had consensual sex without risk of sexual abuse. Consult the [facility] if needed. Contact phone number . Therapeutic failure or success cannot be determined with the Aptima Combo2 assay since nucleic acid may persist following appropriate antimicrobial therapy. The Centers for Disease Control and Prevention (CDC) recommends confirmatory retesting using culture or a different nucleic acid amplification test when positive results occur, if indicated. Testing performed or reported by [facility], a Service of [facility], [address] [place] [address] [place] [address] Chaka Javier MD, Press Breaker [facility]# [id number] Swab (Vagina) 01/02/2021 10: 57 AM EDT 01/02/2021 3:37 PM EDT us Phil Rivera MD LAB MICROBIOLOGY - GENERAL O RDERABLES Final Result [facility] from Last 3 Months or Most Recently Relevant to Health Maintenance Care Teams Resizer Operator Relationship Specialty Start Date End Date Mary Jo Jay MD PCP - General Pediatrics 05/05/20
--- OUTSIDE RECORDS SUMMARY | 2024-09-09 11:48 | XMS_ITS | Encounter Summary ---
Author Organization [facility] Address [address] [place] [address] Phone Care Team Providers Care Engraver Flatware Name Role Phone Mary Jo Jay MD Primary Care Provider [phone] Reason for Visit * Reason Comments Med Refill Encounter Details Date Type Department Care Team (Late st Contact Info) Description 10/23/2021 Refill [facility] [address] [place] [id number] Mary Jo Jay MD [address] [place], [place] [phone] Encounter for surveillance of contraceptive pills Social History Tobacco Use Types Packs/Day Years [...] documented as of this encounter Visit Diagnoses Diagnosis Encounter for surveillance of contraceptive pills documented in this encounter Care Teams Engraver Flatware Relationship Specialty Start Date End Date Mary Jo Jay MD PCP - General Pediatrics 05/05/20 documented as of this encounter
--- OUTSIDE RECORDS SUMMARY | 2024-09-09 11:48 | XMS_ITS | Encounter Summary ---
Author Organization [facility] Address [address] [place] [address] Phone Care Team Providers Care Waste Chopper Name Role Phone Mary Jo Jay MD Primary Care Provider [phone] Reason for Visit * Reason Onset Date Comments Med Refill 06/01/2020 Encounter Details Date Type Department Care Team (Late st Contact Info) Description 06/01/2020 Refill [facility] [address] [facility] [place] [address] Mary Jo Jay MD [address] [place], [place] [id number] OCP (oral contraceptive pills) initiation Social History Tobacco Use Types Packs/Day Years [...] as of this encounter Visit Diagnoses Diagnosis OCP (oral contraceptive pills) initiation General counseling for prescription of oral contraceptives documented in this encounter Care Teams Waste Chopper Relationship Specialty Start Date End Date Mary Jo Jay MD PCP - General Pediatrics 05/05/20 documented as of this encounter
[2024-09-09 12:09] VITALS: BP 95/54; PULSE 69; RESP 14; TEMP 36.9; O2SAT 99
[2024-09-09 12:27] VITALS: BP 100/51; PULSE 61; RESP 16; TEMP -17.7; TEMP 0; O2SAT 99
== END 2024-09-09 12:27 | disposition home or self-care (01) ==
PROVIDERS: Emergency Provider Emergency Medicine Emergency Medical Services; PCP Physician Assistant Medical
DX: R07.9 Chest pain, unspecified (principal)
CPT/HCPCS: 36415; 80048; 84484; 85025; 93005; 99283; 99284

== ENCOUNTER → 2024-09-09 09:53 | Outpatient (BNV) | payer OTHER, SELFPAY | PROVIDERS: Emergency Provider Emergency Medicine Emergency Medical Services; PCP Physician Assistant Medical; Visit Provider Internal Medicine Cardiovascular Disease | DX: R07.9 Chest pain, unspecified (principal) | CPT/HCPCS: 93010 ==

== ENCOUNTER 2024-10-08 20:31 | Emergency (ER) | payer OTHER, SELFPAY ==
--- NOTE | ~2024-10-08 | US_ITS ---
EXAMINATION: US PELVIS TRANSABDOMINAL AND TRANSVAGINAL HISTORY: RLQ pain, please eval for ovarian source COMPARISON: Correlation is made with a CT of the abdomen and pelvis with contrast performed earlier in the day. TECHNIQUE: Transabdominal and endovaginal real-time 2D horvath-scale ultrasound was performed. FINDINGS: Uterus: The uterus is normal in size, measuring 8.8 x 3.3 x 5.2 cm. Myometrium has a normal echotexture. No fibroids are identified. Endometrium: The endometrial stripe measures 9 mm in thickness. There are nabothian cysts in the cervix. Right ovary: The right ovary measures 5.9 x 2.1 x 0.2 cm. The right ovary is normal in size and echotexture. There is a dominant 2.0 cm follicle. Left ovary: The left ovary measures 4.9 x 1.9 x 1.9 cm. The left ovary is normal in size and echotexture. Pelvic fluid: none. US/US pelvic and transvaginal IMPRESSION: Unremarkable pelvic ultrasound. Electronically signed by: Bucky Faith MD 10/09/2024 08:00 AM EDT
--- NOTE | ~2024-10-08 | CT_ITS ---
CLINICAL HISTORY: RLQ pain, appy?? CT Abdomen and Pelvis W Contrast COMPARISON: None FINDINGS: Hepatomegaly. Normal spleen. Subcentimeter hypodensity in the left kidney, too small to accurately characterize. Unremarkable right kidney. No hydronephrosis. Normal adrenal glands. Normal pancreas. No visible cholelithiasis. No biliary dilation. No evidence of bowel obstruction or colitis. Normal appendix. Unremarkable bladder. Unremarkable uterus and ovaries. Small physiologic free fluid in the pelvis. No pneumoperitoneum. No lymphadenopathy. No acute fracture. No abdominal aortic aneurysm. IMPRESSION: No acute findings. Nonemergent/incidental findings above. This document has been electronically signed by: Humza Acuña MD on 10/09/2024 04:21:35
[2024-10-08 20:35] VITALS: BP 128/68; PULSE 122; RESP 20; TEMP 36.7; O2SAT 97; BMI 31.6
--- NOTE | 2024-10-08 20:47 | ED_ITS ---
HPI - General Adult General Chief complaint: Abdominal Pain Stated complaint: Ovarian pain/feels dizzy Time Seen by Provider: 10/09/24 02:00 Source: patient Limitations: no limitations History of Present Illness ED Provider: Maria Dolores Crowder PA-C HPI narrative: 29-year-old female with a history of ovarian cysts presents with right lower abdominal discomfort x 2-3 days. Patient states she typically has discomfort within this region prior to her menstrual cycle, she has had it for about a week. Patient states her current pain is not typical of her ovarian cyst pain. Over the past few days, it has increased in severity. Patient states it is sharp at times, fluctuates in intensity and is nonradiating. Pain worse with walking and when she is lying down if her legs are outstretched. Associated increased urine urgency and nausea. Patient denies new vaginal discharge, risk for STD, fever, diarrhea. Denies history of kidney stones. Patient has not had prior abdominal surgeries. Related Data Home Medications ?Medication ?Instructions ?Recorded ?Confirmed albuterol sulfate 90 mcg/actuation 1 puff inhalation QID PRN wheezing 10/03/22 aerosol inhaler (Ventolin HFA) fluoxetine 20 mg capsule 60 mg PO QAM 10/03/22 lisdexamfetamine 30 mg capsule 30 mg PO QAM 10/03/22 (Vyvanse) quetiapine 150 mg tablet,extended 150 mg PO BEDTIME 10/03/22 release 24 hr quetiapine 50 mg tablet 50 mg PO TID 10/03/22 Previous Rx's ?Medication ?Instructions ?Recorded acetaminophen 500 mg tablet 1,000 mg (2 x 500 mg) PO QID PRN 11/17/21 (Tylenol Extra Strength) fever or pain #14 tabs oxycodone 5 mg tablet 5 mg PO Q6H PRN pain #30 tabs 11/17/21 polyethylene glycol 3350 17 17 g PO DAILY Constipation #238 11/17/21 gram/dose oral powder (Miralax) grams ketorolac 10 mg tablet 10 mg PO TID PRN pain 5 days #15 09/23/22 tabs cefuroxime axetil 250 mg tablet 250 mg PO BID 6 days #12 tabs 10/09/24 ibuprofen 400 mg tablet 400 mg PO Q6H PRN pain #14 tabs 10/09/24 morphine 15 mg immediate release 15 mg PO Q6H PRN pain #10 tabs 10/09/24 tablet Allergies Allergy/AdvReac Type Severity Reaction Status Date / Time ciprofloxacin [From CIPRO] Allergy Intermediate NEUROPATHY Verified 10/08/24 20:37 Review of Systems 2 Review of Systems: Yes all other systems are reviewed and are negative Constitutional: Constitutional: Denies fatigue and Denies fever(s) Cardiovascular: Cardiovascular: Denies chest pain and Denies dyspnea Respiratory: Respiratory: Denies dyspnea Gastrointestinal: Gastrointestinal: Reports abdominal pain, Denies diarrhea, Reports nausea and Denies vomiting Genitourinary: Genitourinary: Denies hematuria, Denies dysuria, Denies flank pain, Reports urinary urgency and Denies vaginal discharge Endocrine: Endocrine: Denies fatigue PMFSH Past Medical History Attestation statement: The following information was validated with the patient. Medical History History of behavioral and mental health problems Sacrococcygeal pilonidal cyst Social History Social History Alcohol intake: former Current occupational status: employed Current occupation: cheer literacy coach/ left hand dominant Physical Exam ED Vital Signs: Vital Signs - 24 hr 10/08/24 20:35 10/09/24 03:00 10/09/24 05:31 Temperature 98.1 F 97.6 F 97.6 F Pulse Rate 122 H 73 76 Respiratory Rate 20 16 18 Blood Pressure 128/68 102/63 121/64 Pulse Oximetry 97 97 100 Oxygen Delivery Method Room Air Room Air Room Air 10/09/24 06:18 10/09/24 08:27 10/09/24 08:44 Temperature 97.8 F 97.5 F 97.5 F Pulse Rate 73 71 72 Respiratory Rate 16 18 18 Blood Pressure 101/57 L 99/45 L 99/45 L Pulse Oximetry 98 99 99 Oxygen Delivery Method Room Air Room Air Room Air BMI result Body Mass Index 31.6 Const Other: Alert well-appearing Orientation/consciousness: patient oriented x3 Resp Effort & Inspection: normal respiratory effort Cardio Other: Normal peripheral perfusion GI Other: Abdomen is soft, nondistended, mild tenderness over suprapubic region, moderate tenderness over right lower quadrant with mild to moderate involuntary guarding, the patient is lying on the stretcher with her knees bent to help alleviate the discomfort in the right lower abdomen Skin Other: Warm dry no rash Neuro General: patient oriented x3, gait normal, no focal motor deficits and CN's II- XI intact bilaterally Psych Other: Cooperative Course Course Course Narrative: RMOscar: 29-year-old female presents to ED for right lower quadrant abdominal pain. Patient has history of ovarian cysts. Positive for right lower quadrant tenderness on palpation. Labs ordered Reevaluation(s) Reevaluation #1: Signed out to night team pending imaging and final disposition Reevaluation #2: Dr. Marlow: The patient was signed out to me at change of shift pending the results of a CT scan of the abdomen and pelvis. The patient is a 29-year-old female who had apparently presented with severe right lower abdominal pain. She required morphine for pain control. The CT of her abdomen and pelvis was negative. The the patient had already received IV ceftriaxone for a possible UTI. There was no sign of pyelonephritis on the CT scan. The patient was frustrated that I do not have an explanation for the pain that she has been experiencing. She did not think that the pain was clearly result of a urinary tract infection. We therefore obtained a pelvic ultrasound as well to look for possible ovarian pathology. The pelvic ultrasound was negative. Clinically my suspicion for pyelonephritis or ovarian torsion in his patient is very low. She does not seem uncomfortable at the time that I interacted with her. I spoke to her again after the results of the pelvic ultrasound. Again she did not appear particularly uncomfortable in any way. She had not received any pain medication for a long time. She will be discharged with a prescription for cefuroxime for a possible UTI. She was also given prescriptions for ibuprofen and a small prescription for morphine tablets. She should follow up with her PCP's office. Time: 08:26 Medications Administered Discontinued Medications Generic Name Dose Route Start Last Admin Trade Name Rolandoq PRN Reason Stop Dose Admin Ceftriaxone Sodium 2 gm 10/09/24 02:31 10/09/24 02:49 Ceftriaxone Sodium 2 Gm Vial IVPUSH 10/09/24 02:32 2 gm ONCE ONE Administration Droperidol 0.625 mg 10/09/24 06:10 10/09/24 06:19 Droperidol 5 Mg/2 Ml Vial IVPUSH 10/09/24 06:11 0.625 mg ONCE ONE Administration Sodium Chloride 2,586 mls @ 2,586 mls/hr 10/09/24 02:31 10/09/24 05:30 Ns 30 ml/kg infuse over 1 hr (2586 ml) 10/09/24 03:30 Infused IV Infusion .Q1H STA Ibuprofen 600 mg 10/08/24 22:04 10/08/24 22:07 Ibuprofen 600 Mg Tablet PO 10/08/24 22:05 600 mg ONCE ONE Administration Iohexol 85 ml 10/09/24 03:48 10/09/24 03:49 Iohexol 350 Mg/Ml 100 Ml Infus..Btl IV 10/09/24 03:49 85 ml ONCE ONE Administration Ketorolac Tromethamine 15 mg 10/09/24 02:31 10/09/24 02:44 Ketorolac Tromethamine 15 Mg/Ml Vial IVPUSH 10/09/24 02:32 15 mg ONCE ONE Administration Morphine Sulfate 4 mg 10/09/24 02:31 10/09/24 02:46 Morphine Sulfate 4 Mg/Ml Cartridge IVPUSH 10/09/24 02:32 4 mg ONCE ONE Administration Protocol Morphine Sulfate 10 mg 10/09/24 03:51 10/09/24 03:54 Morphine Sulfate 10 Mg/Ml Cartridge IVPUSH 10/09/24 03:52 10 mg ONCE ONE Administration Protocol Ondansetron HCl 4 mg 10/09/24 02:31 10/09/24 02:43 Ondansetron Hcl 4 Mg/2 Ml Vial IVPUSH 10/09/24 02:32 4 mg ONCE ONE Administration Medical Decision Making Medical Decision Making MDM Narrative: 29-year-old female with a history of ovarian cysts presents with right lower abdominal discomfort x 2-3 days. Patient states she typically has discomfort within this region prior to her menstrual cycle, she has had it for about a week. Patient states her current pain is not typical of her ovarian cyst pain. Over the past few days, it has increased in severity. Patient states it is sharp at times, fluctuates in intensity and is nonradiating. Pain worse with walking and when she is lying down if her legs are outstretched. Associated increased urine urgency and nausea. Patient denies new vaginal discharge, risk for STD, fever, diarrhea. Denies history of kidney stones. Patient has not had prior abdominal surgeries. Problem: Ovarian cyst History: Per patient I have considered the following differential diagnoses: Torsion, appendicitis, UTI, renal colic, TOA Plan: I am most concerned for appendicitis versus torsion, the patient has a slight leukocytosis, her exam was consistent with potential appendicitis, although she could have the same exam findings with torsion. She also was found to have a urinary tract infection. We will be obtaining a CT scan of the abdomen, this will view all structures in question. The patient may require transvaginal ultrasound of the CT scan is negative for appendicitis. Giving fluid, antiemetic and morphine for pain with Toradol. Thought about renal colic, however the patient never had any flank pain, she has no history kidney stones, she is not passing a large amount of blood in her urine. Thought about TOA, however she is not having any new vaginal discharge, she has no risk for STD, deferring a pelvic exam for now. I did order blood cultures and a lactic prior to treating the patient's urinary tract infection. I have independently reviewed the following tests: Labs: Leukocytosis noted, not anemic, no electrolyte abnormality, urine is infected, lactic 1.[address] , [address] abdomen and pelvis: Lab Data 10/08/24 22:19 10/08/24 22:19 Labs: Lab Results 10/08/24 10/08/24 10/09/24 Range/Units 22:09 22:19 02:49 WBC 13.8 H (4.8-10.8) X10*3/uL RBC 4.20 (4.20-5.50) X10*6/uL Hgb 13.1 (12.0-16.0) g/dl Hct 37.9 (37.0-47.0) % MCV 90.2 (80.0-98.0) fL MCH 31.2 (27.0-33.0) pg MCHC 34.6 (31.0-35.0) g/dl RDW 12.5 (11.0-16.0) % Plt Count 279 (160-400) X10*3/uL MPV 9.9 (9.4-12.3) fL Immature Gran % (Auto) 0.4 (0.0-0.4) % Neut % (Auto) 67.1 (45-73) % Lymph % (Auto) 24.6 (20-40) % [place] % (Auto) 6.8 (2-11) % Eos % (Auto) 0.4 (0-4) % Baso % (Auto) 0.7 (0-2) % Lymph # (Auto) 3.4 (1.2-4.9) X10*3/uL [place] # (Auto) 0.9 (0.1-1.2) X10*3/uL Eos # (Auto) 0.1 (0.0-0.4) X10*3/uL Baso # (Auto) 0.1 (0.0-0.2) X10*3/uL Abs Immat Gran (auto) 0.05 H (0.00-0.03) X10*3/uL Absolute Neuts (auto) 9.3 H (2.0-8.3) x10*3/uL Absolute Nucleated RBC 0.000 (0.0-0.012) X10*3/uL Nucleated RBC % (auto) 0.0 (0.0-0.2) /100WBC Sodium 141 (135-145) mmol/L Potassium 4.0 (3.3-5.1) mmol/L Chloride 107 (96-108) mmol/L Carbon Dioxide 29 (22-29) mmol/L Anion Gap 9 L (12-20) BUN 7 L (9-16) mg/dL Creatinine 0.84 (0.5-1.4) mg/dL Estim Creat Clear Calc 108.0 Estimated GFR > 60 Random Glucose 80 (60-115) mg/dL Lactic Acid 1.2 (0.5-2.0) mmol/L Calcium 9.3 (8.4-10.2) mg/dL Total Bilirubin 0.3 (0.0-1.0) mg/dL AST 20 (5-31) U/L ALT 14 (0-31) U/L Alkaline Phosphatase 62 (39-117) U/L C-Reactive Protein 0.19 (< or = 0.50) mg/dL Total Protein 7.0 (6.5-8.0) g/dL Albumin 4.5 (3.5-5.0) g/dL Beta HCG, Quant < 2 mIU/mL Urine Color Yellow Urine Appearance Cloudy Urine pH 6.0 (5.0-9.0) Ur Specific [place] 1.015 (1.005-1.025) Urine Protein Negative (Neg-Trace) mg/dL Urine Glucose (UA) Negative (Negative) mg/dL Urine Ketones Trace (Negative) mg/dL Urine Blood Trace H (Negative) Urine Nitrite Positive H (Negative) Ur Leukocyte Esterase Small (1+) H (Negative) Urine RBC 3-5 H (0-2) /HPF Urine WBC 21-50 H (0-5) /HPF Ur Squamous Epith Cells >20 (0-2) /HPF Urine Bacteria 4+ (None Seen) Hyaline Casts 0-2 (0-2) /LPF Urine Test NEGATIVE (NEGATIVE) Discharge Plan Discharge Clinical Impression: Urinary tract infection, Right sided abdominal pain Patient Disposition: Home, Self-Care Instructions: Urinary Tract Infection in Women (ED) Additional Instructions: Please take the antibiotics prescribed for a urinary tract infection. Take your 1st dose of the antibiotic cefuroxime this evening. After that take the medicine approximately every 12 hours, two times a day. Prescriptions for ibuprofen and morphine has been sent to your pharmacy as well in case you have any recurrence of significant pain. Your testing today did not show any explanation for why you were having such severe pain. The CAT scan of your abdomen and your pelvis, and the ultrasound of your pelvis are all reassuring. Please follow up with your regular doctor's office. Return to the emergency room if significantly worse. Prescriptions: New cefuroxime axetil 250 mg tablet 250 mg PO BID 6 Days Qty: 12 0RF ibuprofen 400 mg tablet 400 mg PO Q6H PRN (Reason: pain) Qty: 14 0RF morphine 15 mg tablet 15 mg PO Q6H PRN (Reason: pain) Qty: 10 0RF Rx Instructions: Partial Fill upon patient request. No Action oxycodone 5 mg tablet 5 mg PO Q6H PRN (Reason: pain) Qty: 30 0RF Rx Instructions: Partial Fill upon patient request. acetaminophen [Tylenol Extra Strength] 500 mg tablet 1,000 mg PO QID PRN (Reason: fever or pain) Qty: 14 0RF polyethylene glycol 3350 [Miralax] 17 gram/dose powder 17 g PO DAILY Qty: 238 0RF ketorolac 10 mg tablet 10 mg PO TID PRN (Reason: pain) 5 Days Qty: 15 0RF Vyvanse 30 mg capsule 30 mg PO QAM quetiapine 150 mg tablet extended release 24 hr 150 mg PO BEDTIME quetiapine 50 mg tablet 50 mg PO TID fluoxetine 20 mg capsule 60 mg PO QAM albuterol sulfate [Ventolin HFA] 90 mcg/actuation HFA aerosol inhaler 1 puff inhalation QID PRN (Reason: wheezing) Referrals: Jeramy Adams PA [Primary Care Provider] - Interventions: ED Discharge Assessment Last Done: 10/09/24 08:44 Discharge Date/Time: 10/09/24 08:45 Print Language: Tristanian
[2024-10-08] MEDS: Ibuprofen 600 MG TABLET PO (22:07)
[2024-10-08 22:24] LABS: MANUAL DIFF FLAG NO
[2024-10-08 22:26] LABS: Basophils Absolute Auto 0.1 X10*3/uL (0.0-0.2); Basophils Percent Auto 0.7 % (0-2); Eosinophils Absolute Auto 0.1 X10*3/uL (0.0-0.4); Eosinophils Percent Auto 0.4 % (0-4); Hematocrit 37.9 % (37.0-47.0); Hemoglobin 13.1 g/dl (12.0-16.0); Imm Gran Abs Auto 0.05 X10*3/uL (0.00-0.03); Imm Gran Pct Auto 0.4 % (0.0-0.4); Lymphocytes Absolute Auto 3.4 X10*3/uL (1.2-4.9); Lymphocytes Percent Auto 24.6 % (20-40); Mean Corpuscular HGB Conc 34.6 g/dl (31.0-35.0); Mean Corpuscular Hemoglobin 31.2 pg (27.0-33.0); Mean Corpuscular Volume 90.2 fL (80.0-98.0); Mean Platelet Volume 9.9 fL (9.4-12.3); Monocytes Absolute Auto 0.9 X10*3/uL (0.1-1.2); Monocytes Percent Auto 6.8 % (2-11); Neutrophils Absolute Auto 9.3 x10*3/uL (2.0-8.3); Neutrophils Percent Auto 67.1 % (45-73); Platelet Count 279 X10*3/uL (160-400); Red Cell Distribution Width 12.5 % (11.0-16.0); White Blood Count 13.8 X10*3/uL (4.8-10.8)
[2024-10-08 22:26] LABS: Appearance Urine Cloudy; Color Urine Yellow; Glucose Urine UA Negative (Negative); Leukocyte Esterase Urine Small (1+) (Negative); Nitrite Urine Positive (Negative); Specific Gravity - Urine 1.015 (1.005-1.025); UMIC TRIGGER UACC YES; Urine Blood Trace (Negative); Urine Ketones Trace mg/dL (Negative); Urine Protein Negative (Neg-Trace)
[2024-10-08 22:28] LABS: UPreg QC Valid YES; Urine Pregnancy NEGATIVE (NEGATIVE)
[2024-10-08 22:31] LABS: Bacteria Urine 4+ (None Seen); Hyaline Casts Urine 0-2 /LPF (0-2); Squamous Epithelial Cell Urine >20 /HPF (0-2); UACC Culture Trigger YES; WBC Urine 21-50 /HPF (0-5)
[2024-10-08 22:44] LABS: Alanine Aminotransferase 14 U/L (0-31); Albumin Level 4.5 g/dL (3.5-5.0); Alkaline Phosphatase 62 U/L (39-117); Anion Gap 9 (12-20); Aspartate Amino Transferase 20 U/L (5-31); Bilirubin Total 0.3 mg/dL (0.0-1.0); Blood Urea Nitrogen 7 mg/dL (9-16); Calcium 9.3 mg/dL (8.4-10.2); Carbon Dioxide 29 mmol/L (22-29); Chloride 107 mmol/L (96-108); Estimated Glomerular Filt Rate > 60; Glucose Random 80 mg/dL (60-115); Sodium 141 mmol/L (135-145)
[2024-10-08 22:46] LABS: HCG Quantitative < 2 mIU/mL
[2024-10-09] MEDS: ondansetron HCL 4 MG/2 ML VIAL IVPUSH (02:43)
[2024-10-09] MEDS: Ketorolac Tromethamine 15 MG/ML VIAL IVPUSH (02:44)
[2024-10-09] MEDS: 0.9 % Sodium Chloride 2,586 ML 2586 ML IV (02:45)
[2024-10-09] MEDS: Morphine Sulfate 4 MG/ML CARTRIDGE IVPUSH (02:46)
[2024-10-09] MEDS: cefTRIAXone sodium 2 GM VIAL IVPUSH (02:49)
[2024-10-09 03:00] VITALS: BP 102/63; PULSE 73; RESP 16; TEMP 36.4; O2SAT 97
[2024-10-09 03:28] LABS: Lactic Acid 1.2 mmol/L (0.5-2.0)
[2024-10-09] MEDS: iohexoL 350 MG/ML 100 ML INFUS..BTL 85 ML IV (03:49)
[2024-10-09] MEDS: Morphine Sulfate 10 MG/ML CARTRIDGE IVPUSH (03:54)
[2024-10-09 05:31] VITALS: BP 121/64; PULSE 76; RESP 18; TEMP 36.4; O2SAT 100
[2024-10-09 05:54] LABS: C Reactive Protein 0.19 mg/dL (< or = 0.50)
[2024-10-09 06:18] VITALS: BP 101/57; PULSE 73; RESP 16; TEMP 36.6; O2SAT 98
[2024-10-09] MEDS: droPERidol 5 MG/2 ML VIAL 0.625 MG IVPUSH (06:19)
--- NOTE | 2024-10-09 07:10 | PC.NURSE ---
Pt off the floor to ultrasound.
[2024-10-09 08:27] VITALS: BP 99/45; PULSE 71; RESP 18; TEMP 36.4; O2SAT 99
[2024-10-09 08:44] VITALS: BP 99/45; PULSE 72; RESP 18; TEMP 36.4; O2SAT 99
== END 2024-10-09 08:45 | disposition home or self-care (01) ==
PROVIDERS: Physician Assistant; Physician Assistant Medical; Emergency Provider Emergency Medicine; PCP Physician Assistant Medical
DX: N39.0 Urinary tract infection, site not specified (principal); R10.31 Right lower quadrant pain; Z79.899 Other long term (current) drug therapy
CPT/HCPCS: 36415; 74177; 76830; 76856; 80053; 81001; 81025; 83605; 84702; 85025; 86140; 87040; 87086; 87088; 87186; 96361; 96374; 96375; 96376; 99285; J0696; J1790; J1885; J2270; J2405; Q9967

== ENCOUNTER → 2024-10-09 02:31 | Outpatient (BNV) | payer OTHER, SELFPAY | PROVIDERS: Emergency Provider Emergency Medicine; PCP Physician Assistant Medical; Visit Provider Radiology Diagnostic Radiology | DX: R10.31 Right lower quadrant pain (principal) | CPT/HCPCS: 74177; 76830; 76856 ==